=== PATIENT | male | born 1980 | race African-American/Black ===

== ENCOUNTER 2018-04-16 05:24 | Emergency (ER) | payer BC, OTHER ==
[2018-04-16 05:39] VITALS: TEMP 97.6; BMI 26.6
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
[2018-04-16] MEDS ORDERED: morphine SULFATE 4 MG/ML VIAL ONE ×2 (08:09→09:44)
[2018-04-16] MEDS ORDERED: morphine CARPU-JECT 4 MG/1 ML DISP.SYRIN IVPUSH ONE ×2 (08:14→09:20)
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
[2018-04-16 08:30] LABS: BASO % 0.4 % (0-2.0); EOS % 0.1 % (0-4.5); HEMATOCRIT 46.1 % (35.4-49); HEMOGLOBIN 14.7 GM/dL (11.7-16.9); LYMPH % 7.2 % (8-40); MCH 26.6 pg (25.7-33.7); MCHC 31.8 g/dl (32.0-35.9); MEAN CELL VOLUME 83.6 fl (80-96); MEAN PLT VOLUME 7.6 fl (7.5-11.1); MONO % 3.8 % (3.8-10.2); NEUT % 88.5 % (42.8-82.8); PLATELET COUNT 338 K/MM3 (134-434); RBC 5.52 M/mm3 (4.00-5.60); RDW 15.7 % (11.9-15.9)
[2018-04-16 08:41] LABS: INR 1.06 (0.83-1.09); PROTHROMBIN TIME (PATIENT) 12.5 SEC (9.7-13.0)
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
[2018-04-16 08:51] LABS: ALBUMIN 4.4 g/dl (3.4-5.0); ALK PHOS 62 U/L (45-117); ANION GAP 10 MMOL/L (8-16); BILIRUBIN,TOTAL 0.4 mg/dL (0.2-1); BLOOD UREA NITROGEN 10 mg/dL (7-18); CHLORIDE 111 mmol/L (98-107); CO2 21 mmol/L (21-32); CREATININE 0.9 mg/dL (0.55-1.3); GLUCOSE,RANDOM 100 mg/dL (74-106); POTASSIUM 4.1 mmol/L (3.5-5.1); SGOT/AST 23 U/L (15-37); SGPT/ALT 26 U/L (13-61); SODIUM 142 mmol/L (136-145); TOT PROT 8.3 g/dl (6.4-8.2)
[2018-04-16 11:05] VITALS: BP 160/92; PULSE 74
== END 2018-04-16 11:44 | disposition short-term general hospital (02) ==
LOC: JER 05:24
PROC: 3E033NZ Introduction of Analgesics, Hypnotics, Sedatives into Peripheral Vein, Percutaneous Approach (ICD-10-PCS; principal; 2018-04-16)
DX: S02.69XA Fracture of mandible of other specified site, initial encounter for closed fracture (principal); K08.109 Complete loss of teeth, unspecified cause, unspecified class; Y04.2XXA Assault by strike against or bumped into by another person, initial encounter; Y93.89 Activity, other specified; Y92.59 Other trade areas as the place of occurrence of the external cause; Y99.8 Other external cause status; Y07.6 Multiple perpetrators of maltreatment and neglect
CPT/HCPCS: 36415; 70450-TC; 70486-TC; 72125-TC; 80053; 85025; 85610; 86850; 86900; 86901; 96374; 96376; 99284-25